=== PATIENT | female | born 1955 | race Caucasian/White ===

== ENCOUNTER → 2017-04-03 | Outpatient (CLI) | payer BC ==
--- NOTE | 2017-04-03 10:44 | REPMRS ---
Patient History The patient states she had a clinical breast exam in 03/2017. Patient is postmenopausal and had first child at age 30. Family history of breast cancer in mother at age 50 or over and ovarian cancer in mother at age 50 or over. Digital Woman Screen Mammo: April 03, 2017 - Exam #: [id number] Bilateral CC and MLO view(s) were taken. Technologist: Barbie Fuller Technologist Prior study comparison: March 27, 2016, digital woman screen mammo performed at [facility]. March 24, 2015, digital woman screen mammo performed at [facility]. March 23, 2014, digital woman screen mammo performed at [facility]. FINDINGS: The breast tissue is almost entirely fat. There has been no change in the appearance of the mammogram from the prior studies. There is no interval development of dominant mass, architectural distortion, or clustered microcalcification typical of malignancy. ASSESSMENT: BI-RADS/ACR category 1 mammogram. Negative. Recommendation Routine screening mammogram of both breasts in 1 year (for women over age 40). This patient's Lifetime Breast Cancer RIsk is estimated at 19 %. This mammogram was interpreted with the aid of an FDA-approved computer-aided dectection system. Electronically Signed By: Rui Garcia MD 04/03/17 [id number]
== END ==
LOC: M WHC 07:54
PROVIDERS: ATTEND Nurse Practitioner Family
DX: Z12.31 Encounter for screening mammogram for malignant neoplasm of breast (principal); Z78.0 Asymptomatic menopausal state

== ENCOUNTER → 2017-04-03 | Outpatient (REF) | payer OTHER | LOC: M SFHCWAGY 08:21 | PROVIDERS: ATTEND Nurse Practitioner Family | DX: Z12.4 Encounter for screening for malignant neoplasm of cervix (principal) ==

== ENCOUNTER 2018-03-05 06:12 | Inpatient (IN) | payer BC, OTHER ==
[2018-03-05 06:49] LABS: BASO % 0.4 % (0.0-1.0); EOS # 0.1 10^3/uL (0.0-0.50); EOS % 0.9 % (0.0-3.0); HEMATOCRIT 44.5 % (36.0-47.0); HEMOGLOBIN 14.2 g/dl (12.0-15.5); IMMATURE GRANULOCYTE % 0.2 % (0-3.0); LYMPH # 1.3 10^3/uL (1.5-4.5); LYMPH % 14.7 % (24.0-44.0); MEAN CORPUSCULAR HEMOGLOBIN 29.5 pg (27.0-33.0); MEAN CORPUSCULAR HGB CONC 31.9 g/dl (32.0-36.5); MEAN CORPUSCULAR VOLUME 92.5 fl (80.0-96.0); MONO # 0.9 10^3/uL (0.0-0.8); MONO % 10.5 % (0.0-5.0); NEUTROPHILS # 6.5 10^3/uL (1.8-7.7); NEUTROPHILS % 73.3 % (36.0-66.0); PLATELET COUNT, AUTOMATED 269 10^3/uL (150-450); RED BLOOD COUNT 4.81 10^6/uL (4.00-5.40); RED CELL DISTRIBUTION WIDTH 14.1 % (11.5-14.5); WHITE BLOOD COUNT 8.9 10^3/uL (4.0-10.0)
[2018-03-05] MEDS: NS 1,000 ML IV ×3 (06:50→20:02)
[2018-03-05] MEDS: MORPHINE 4 MG/ML 1ML VIAL/SYRINGE (J2270) IV ×2 (06:50→09:38)
[2018-03-05 07:24] LABS: ALBUMIN 3.5 GM/DL (3.2-5.2); ALKALINE PHOSPHATASE 81 U/L (45-117); ALT/SGPT 14 U/L (12-78); ANION GAP 8 MEQ/L (8-16); AST/SGOT 19 U/L (7-37); BILIRUBIN,DIRECT < 0.1 MG/DL (0.0-0.2); BILIRUBIN,TOTAL 0.3 MG/DL (0.2-1.0); BLOOD UREA NITROGEN 7 MG/DL (7-18); CALCIUM LEVEL 9.1 MG/DL (8.8-10.2); CARBON DIOXIDE LEVEL 28 MEQ/L (21-32); CHLORIDE LEVEL 105 MEQ/L (98-107); CREATININE FOR GFR 0.95 MG/DL (0.55-1.30); GLOMERULAR FILTRATION RATE > 60.0 (>45); GLUCOSE, FASTING 127 MG/DL (70-100); LIPASE 90 U/L (73-393); POTASSIUM SERUM 4.1 MEQ/L (3.5-5.1); SODIUM LEVEL 141 MEQ/L (136-145); TOTAL PROTEIN 7.4 GM/DL (6.4-8.2)
[2018-03-05] MEDS ORDERED: ISOVUE-370 76% 100ML VIAL (Q9967) As Ordered (07:33)
[2018-03-05 08:09] LABS: APPEARANCE, URINE CLEAR (CLEAR); BACTERIA, URINE AUTO NEGATIVE (NEGATIVE); BILIRUBIN, URINE AUTO NEGATIVE (NEGATIVE); BLOOD, URINE BLOOD 1+ (NEGATIVE); COLOR, URINE STRAW (YELLOW); GLUCOSE, URINE (UA) AUTO NEGATIVE (NEGATIVE); KETONE, URINE AUTO NEGATIVE (NEGATIVE); LEUKOCYTE ESTERASE, URINE AUTO NEGATIVE (NEGATIVE); NITRITE, URINE AUTO NEGATIVE (NEGATIVE); PROTEIN, URINE AUTO NEGATIVE (NEGATIVE); RBC, URINE AUTO 0 /HPF (0-3); SPECIFIC GRAVITY URINE AUTO 1.013 (1.002-1.035); SQUAMOUS EPITHELIAL CELL UR AU 0 /HPF (0-6); UROBILINOGEN, URINE AUTO 0.2 mg/dL (0.0-2.0); WBC, URINE AUTO 0 /HPF (0-3)
[2018-03-05] MEDS: NS 500 ML IV (08:23)
[2018-03-05] MEDS ORDERED: NS 500 ML IV (08:30)
[2018-03-05 09:41] LABS: LACTIC ACID SEPSIS PROTOCOL 2.7 MMOL/L (0.4-2.0)
[2018-03-05] MEDS: PIPERACILLIN/TAZOBACTAM SOD 3.375 GM in D5W MINI-BAG PLUS 50 ML IV (11:10)
[2018-03-05] MEDS ORDERED: MORPHINE 4 MG/ML 1ML VIAL/SYRINGE (J2270) IV (12:45)
[2018-03-05] MEDS ORDERED: ONDANSETRON 4MG/2ML VIAL (J2405) IV (12:45)
[2018-03-05] MEDS: CIPROFLOXACIN 400 MG in APPROPRIATE DILUENT 1 EA IV (13:20)
[2018-03-05] MEDS: metroNIDAZOLE 500 MG in APPROPRIATE DILUENT 1 EA IV ×2 (14:11→23:28)
[2018-03-05] MEDS: PERCOCET 5MG/325MG TAB PO ×2 (15:30→20:03)
[2018-03-06] MEDS: CIPROFLOXACIN 400 MG in APPROPRIATE DILUENT 1 EA IV ×2 (01:54→14:29)
[2018-03-06] MEDS: PERCOCET 5MG/325MG TAB PO ×3 (01:55→21:03)
[2018-03-06] MEDS: metroNIDAZOLE 500 MG in APPROPRIATE DILUENT 1 EA IV ×3 (05:11→21:03)
[2018-03-06 08:26] LABS: HEMATOCRIT 38.4 % (36.0-47.0); HEMOGLOBIN 12.4 g/dl (12.0-15.5); MEAN CORPUSCULAR HEMOGLOBIN 29.2 pg (27.0-33.0); MEAN CORPUSCULAR HGB CONC 32.3 g/dl (32.0-36.5); MEAN CORPUSCULAR VOLUME 90.4 fl (80.0-96.0); PLATELET COUNT, AUTOMATED 236 10^3/uL (150-450); RED BLOOD COUNT 4.25 10^6/uL (4.00-5.40); RED CELL DISTRIBUTION WIDTH 14.5 % (11.5-14.5); WHITE BLOOD COUNT 6.5 10^3/uL (4.0-10.0)
[2018-03-06 08:54] LABS: ANION GAP 5 MEQ/L (8-16); BLOOD UREA NITROGEN 3 MG/DL (7-18); CALCIUM LEVEL 8.5 MG/DL (8.8-10.2); CARBON DIOXIDE LEVEL 26 MEQ/L (21-32); CHLORIDE LEVEL 112 MEQ/L (98-107); CREATININE FOR GFR 0.71 MG/DL (0.55-1.30); GLOMERULAR FILTRATION RATE > 60.0 (>45); GLUCOSE, FASTING 106 MG/DL (70-100); POTASSIUM SERUM 3.5 MEQ/L (3.5-5.1); SODIUM LEVEL 143 MEQ/L (136-145)
[2018-03-06] MEDS: NS 1,000 ML IV (11:58)
[2018-03-06] MEDS: FLUBLOK(EGG FREE)(QUAD)INFLUENZA VACC 0.5ML SYRINGE (90682)18YRS&OLDER IM (11:58)
[2018-03-07] MEDS: CIPROFLOXACIN 400 MG in APPROPRIATE DILUENT 1 EA IV (01:13)
[2018-03-07] MEDS: metroNIDAZOLE 500 MG in APPROPRIATE DILUENT 1 EA IV (06:02)
[2018-03-07 06:15] LABS: HEMATOCRIT 36.8 % (36.0-47.0); HEMOGLOBIN 11.9 g/dl (12.0-15.5); MEAN CORPUSCULAR HEMOGLOBIN 29.6 pg (27.0-33.0); MEAN CORPUSCULAR HGB CONC 32.3 g/dl (32.0-36.5); MEAN CORPUSCULAR VOLUME 91.5 fl (80.0-96.0); PLATELET COUNT, AUTOMATED 221 10^3/uL (150-450); RED BLOOD COUNT 4.02 10^6/uL (4.00-5.40); RED CELL DISTRIBUTION WIDTH 14.5 % (11.5-14.5); WHITE BLOOD COUNT 6.9 10^3/uL (4.0-10.0)
[2018-03-07 06:41] LABS: ANION GAP 8 MEQ/L (8-16); BLOOD UREA NITROGEN 2 MG/DL (7-18); CALCIUM LEVEL 8.2 MG/DL (8.8-10.2); CARBON DIOXIDE LEVEL 26 MEQ/L (21-32); CHLORIDE LEVEL 111 MEQ/L (98-107); CREATININE FOR GFR 0.72 MG/DL (0.55-1.30); GLOMERULAR FILTRATION RATE > 60.0 (>45); GLUCOSE, FASTING 94 MG/DL (70-100); POTASSIUM SERUM 3.4 MEQ/L (3.5-5.1); SODIUM LEVEL 145 MEQ/L (136-145)
== END 2018-03-07 11:30 | disposition home or self-care (01) | DRG 244 ==
LOC: M ED 06:12 → M ED INP 12:38 → M MSPAV 15:08
DX: K57.92 Diverticulitis of intestine, part unspecified, without perforation or abscess without bleeding (principal); I72.8 Aneurysm of other specified arteries; E66.01 Morbid (severe) obesity due to excess calories; Z79.899 Other long term (current) drug therapy

== ENCOUNTER 2018-03-13 06:47 | Emergency (ER) | payer BC, OTHER ==
[2018-03-13] MEDS: NS 1,000 ML IV (07:23)
[2018-03-13 07:39] LABS: BASO % 0.5 % (0.0-1.0); EOS # 0.1 10^3/uL (0.0-0.50); EOS % 1.5 % (0.0-3.0); HEMATOCRIT 41.4 % (36.0-47.0); HEMOGLOBIN 13.5 g/dl (12.0-15.5); IMMATURE GRANULOCYTE % 0.5 % (0-3.0); LYMPH % 14.5 % (24.0-44.0); MEAN CORPUSCULAR HEMOGLOBIN 29.7 pg (27.0-33.0); MEAN CORPUSCULAR HGB CONC 32.6 g/dl (32.0-36.5); MEAN CORPUSCULAR VOLUME 91.2 fl (80.0-96.0); MONO # 0.7 10^3/uL (0.0-0.8); MONO % 10.2 % (0.0-5.0); NEUTROPHILS # 4.8 10^3/uL (1.8-7.7); NEUTROPHILS % 72.8 % (36.0-66.0); PLATELET COUNT, AUTOMATED 224 10^3/uL (150-450); RED BLOOD COUNT 4.54 10^6/uL (4.00-5.40); RED CELL DISTRIBUTION WIDTH 14.4 % (11.5-14.5); WHITE BLOOD COUNT 6.6 10^3/uL (4.0-10.0)
[2018-03-13 08:13] LABS: ALBUMIN 3.1 GM/DL (3.2-5.2); ALBUMIN/GLOBULIN RATIO 0.82 (1.00-1.93); ALKALINE PHOSPHATASE 60 U/L (45-117); ALT/SGPT 23 U/L (12-78); ANION GAP 10 MEQ/L (8-16); AST/SGOT 25 U/L (7-37); BILIRUBIN,DIRECT < 0.1 MG/DL (0.0-0.2); BILIRUBIN,TOTAL 0.4 MG/DL (0.2-1.0); BLOOD UREA NITROGEN 3 MG/DL (7-18); CALCIUM LEVEL 8.7 MG/DL (8.8-10.2); CARBON DIOXIDE LEVEL 26 MEQ/L (21-32); CHLORIDE LEVEL 108 MEQ/L (98-107); GLOMERULAR FILTRATION RATE > 60.0 (>45); GLUCOSE, FASTING 98 MG/DL (70-100); LIPASE 53 U/L (73-393); POTASSIUM SERUM 2.9 MEQ/L (3.5-5.1); SODIUM LEVEL 144 MEQ/L (136-145); TOTAL PROTEIN 6.9 GM/DL (6.4-8.2)
[2018-03-13] MEDS ORDERED: ISOVUE-370 76% 100ML VIAL (Q9967) As Ordered (08:50)
[2018-03-13] MEDS: POTASSIUM CHLORIDE 10 MEQ SR TABLET PO (09:19)
== END 2018-03-13 10:13 | disposition home or self-care (01) ==
LOC: M ED 06:47
DX: R10.9 Unspecified abdominal pain (principal); I45.19 Other right bundle-branch block; K57.30 Diverticulosis of large intestine without perforation or abscess without bleeding; D18.09 Hemangioma of other sites; K44.9 Diaphragmatic hernia without obstruction or gangrene; K80.20 Calculus of gallbladder without cholecystitis without obstruction; Z86.79 Personal history of other diseases of the circulatory system; Z79.899 Other long term (current) drug therapy
CPT/HCPCS: Q9967

== ENCOUNTER → 2018-03-25 | Outpatient (REF) | payer OTHER, BC ==
[2018-03-25 12:32] LABS: ALBUMIN 3.8 GM/DL (3.2-5.2); ALBUMIN/GLOBULIN RATIO 1.03 (1.00-1.93); ALKALINE PHOSPHATASE 64 U/L (45-117); ALT/SGPT 29 U/L (12-78); ANION GAP 10 MEQ/L (8-16); AST/SGOT 22 U/L (7-37); BILIRUBIN,TOTAL 0.6 MG/DL (0.2-1.0); BLOOD UREA NITROGEN 9 MG/DL (7-18); CALCIUM LEVEL 9.4 MG/DL (8.8-10.2); CARBON DIOXIDE LEVEL 27 MEQ/L (21-32); CHLORIDE LEVEL 102 MEQ/L (98-107); CHOLESTEROL LEVEL 250 MG/DL (<200); CHOLESTEROL RISK RATIO 3.906 (<5); CREATININE FOR GFR 0.83 MG/DL (0.55-1.30); FREE T4 1.22 NG/DL (0.76-1.46); GLOMERULAR FILTRATION RATE > 60.0 (>45); GLUCOSE, FASTING 95 MG/DL (70-100); HDL CHOLESTEROL 64 MG/DL (>40); LDL CHOLESTEROL 155 MG/DL (<100); NON-HDL-C 186 MG/DL; POTASSIUM SERUM 4.1 MEQ/L (3.5-5.1); SODIUM LEVEL 139 MEQ/L (136-145); TOTAL PROTEIN 7.5 GM/DL (6.4-8.2); TRIGLYCERIDES LEVEL 157 MG/DL (<150)
== END ==
LOC: M LABDRAW1 07:53
DX: Z00.00 Encounter for general adult medical examination without abnormal findings (principal); E78.2 Mixed hyperlipidemia
CPT/HCPCS: 84443

== ENCOUNTER → 2018-04-04 | Outpatient (CLI) | payer BC | LOC: M WHC 07:44 | DX: Z12.31 Encounter for screening mammogram for malignant neoplasm of breast (principal); R92.1 Mammographic calcification found on diagnostic imaging of breast | CPT/HCPCS: 77067 ==

== ENCOUNTER 2018-08-12 07:43 | Emergency (ER) | payer BC, OTHER ==
[~2018-08-12] VITALS: Ht 162.6 cm; Wt 78.2 kg
[~2018-08-12 07:43] MED LIST: CIPR500T3 PO; CIPR750T2 PO; D 50CAP PO; FLAG500T PO; IBUP200T45 PO; METR-265 PO; PERC5TAB12 PO; PERCOCET PO
[2018-08-12] MEDS ORDERED: PROBCAP14 PO (07:52)
[2018-08-12] MEDS ORDERED: ACET-683 PO (07:52)
[2018-08-12] MEDS ORDERED: NS 1,000 ML IV SCH (08:31)
[2018-08-12] MEDS ORDERED: ONDANSETRON 4MG/2ML VIAL (J2405) IV ONE (08:45)
[2018-08-12] MEDS: MORPHINE 4 MG/ML 1ML VIAL/SYRINGE (J2270) IV PRN ×2 (09:03→10:45)
[2018-08-12] MEDS: GASTROGRAFIN SOLUTION 30ML PO SCH ×2 (09:05→09:35)
[2018-08-12 09:53] LABS: BASO % 0.2 % (0.0-1.0); EOS % 0.2 % (0.0-3.0); HEMATOCRIT 44.4 % (36.0-47.0); HEMOGLOBIN 14.4 g/dl (12.0-15.5); LYMPH # 1.1 10^3/uL (1.5-4.5); LYMPH % 13.5 % (24.0-44.0); MEAN CORPUSCULAR HEMOGLOBIN 30.6 pg (27.0-33.0); MEAN CORPUSCULAR HGB CONC 32.4 g/dl (32.0-36.5); MEAN CORPUSCULAR VOLUME 94.3 fl (80.0-96.0); MONO # 0.7 10^3/uL (0.0-0.8); MONO % 7.9 % (0.0-5.0); NEUTROPHILS # 6.5 10^3/uL (1.8-7.7); NEUTROPHILS % 77.8 % (36.0-66.0); PLATELET COUNT, AUTOMATED 249 10^3/uL (150-450); RED BLOOD COUNT 4.71 10^6/uL (4.00-5.40); WHITE BLOOD COUNT 8.4 10^3/uL (4.0-10.0)
[2018-08-12 10:15] LABS: ALBUMIN 3.7 GM/DL (3.2-5.2); ALT/SGPT 19 U/L (12-78); BILIRUBIN,DIRECT < 0.1 MG/DL (0.0-0.2); BILIRUBIN,TOTAL 0.4 MG/DL (0.2-1.0); BLOOD UREA NITROGEN 6 MG/DL (7-18); CALCIUM LEVEL 9.2 MG/DL (8.8-10.2); CARBON DIOXIDE LEVEL 20 MEQ/L (21-32); CHLORIDE LEVEL 107 MEQ/L (98-107); CREATININE FOR GFR 0.86 MG/DL (0.55-1.30); GLOMERULAR FILTRATION RATE > 60.0 (>45); GLUCOSE, FASTING 79 MG/DL (70-100); LIPASE 95 U/L (73-393); POTASSIUM SERUM 4.3 MEQ/L (3.5-5.1); SODIUM LEVEL 138 MEQ/L (136-145)
[2018-08-12] MEDS ORDERED: ISOVUE-370 76% 100ML VIAL (Q9967) As Ordered ONE (10:19)
--- NOTE | 2018-08-12 11:18 | REP ---
CT of the abdomen and pelvis with IV and bowel contrast: Comparison is 03/13/2018. The visualized lung haynes are unremarkable. There is a fixed hiatal hernia, unchanged. The hepatic hemangioma identified previously is unchanged. The hepatic parenchyma is otherwise unremarkable. Multiple gallbladder calculi are again identified. The gallbladder is otherwise unremarkable. The pancreas and spleen are unremarkable as previously. There is a splenic artery aneurysm today measuring 2.2 cm AP by 1.7 cm transversely by 1.6 cm craniocaudad. This is not significantly changed. The adrenals are unremarkable. The kidneys unremarkable. The abdominal aorta is unremarkable. There is no bowel distension or obstruction. The mesentery is unremarkable. There are multiple sigmoid colon diverticuli as previously. There is no pericolonic inflammation or abscess to suggest diverticulitis. There is no pneumoperitoneum or ascites. Pelvis: The appendix is unremarkable. The uterus and adnexa are unremarkable. There is no adenopathy or ascites. The bladder is unremarkable. Impression: Sigmoid colon diverticulosis without diverticulitis. Cholelithiasis, unchanged. Hiatal hernia, unchanged. Renal artery aneurysm, unchanged. Hepatic hemangioma, unchanged. Electronically Signed by James Singh MD 08/12/2018 11:10 A
[2018-08-12] MEDS ORDERED: TRAM50TA2 PO (11:29)
[2018-08-12 11:50] VITALS: BP 120/58
--- NOTE | 2018-08-13 14:52 | ED PDOC ---
Post-Departure Follow-Up dr carcamo faxed formal report of ct abd/p for fu Krystina Hodges MD Aug 13, 2018 14:52
--- NOTE | 2018-08-13 14:58 | ED PDOC ---
Post-Departure Follow-Up dr carcamo also faxed formal report of ct abd/p w iv and po contrast for fu Krystina Hodges MD Aug 13, 2018 14:58
== END 2018-08-12 11:53 | disposition home or self-care (01) ==
LOC: M ED 07:43
DX: K57.90 Diverticulosis of intestine, part unspecified, without perforation or abscess without bleeding (principal)
CPT/HCPCS: 36415; 74177; 80048; 80076; 83605; 83690; 85025; 93041; 96374; 96376; 99285; J2270; Q9963; Q9967

== ENCOUNTER 2018-08-15 17:05 | Emergency (ER) | payer BC, OTHER ==
[~2018-08-15] VITALS: Ht 162.6 cm; Wt 77.3 kg
[~2018-08-15 17:05] MED LIST changes: +ACET-683 PO; +PROBCAP14 PO; +TRAM50TA2 PO
[2018-08-15] MEDS ORDERED: KETOROLAC 30 MG/ML VIAL (J1885) IV ONE (19:00)
[2018-08-15] MEDS ORDERED: ONDANSETRON 4 MG ORAL DISINTEGRATING TAB (Q0162 PER 1MG) PO ONE (19:00)
[2018-08-15] MEDS ORDERED: NS 1,000 ML IV ONE (19:00)
--- NOTE | 2018-08-15 20:24 | ECGEPIP ---
Stationary ECG Study [facility] - ED Test Date: 2018-08-15 Pat Name: SANDRA ALFORD Department: Room: - Gender: F Pump Stitcher: haja : 1955 Requested By: Benson Ayala Order Number: [id number] Reading MD: Raza Diallo Measurements Intervals [place] Rate: 68 P: 17 UT: 182 QRS: 24 QRSD: 78 T: 2 QT: 339 QTc: 363 Interpretive Statements SINUS RHYTHM NONSPECIFIC ST & T-WAVE ABNORMALITY Similar to tracing done 03-13-18 Electronically Signed On 08-15-2018 20:23:45 EDT by Raza Diallo
[2018-08-15 20:42] LABS: BASO % 0.5 % (0.0-1.0); EOS # 0.1 10^3/uL (0.0-0.50); EOS % 0.6 % (0.0-3.0); HEMATOCRIT 39.7 % (36.0-47.0); HEMOGLOBIN 13.6 g/dl (12.0-15.5); LYMPH # 1.5 10^3/uL (1.5-4.5); LYMPH % 19.4 % (24.0-44.0); MEAN CORPUSCULAR HEMOGLOBIN 30.5 pg (27.0-33.0); MEAN CORPUSCULAR HGB CONC 34.3 g/dl (32.0-36.5); MONO # 0.8 10^3/uL (0.0-0.8); MONO % 10.1 % (0.0-5.0); NEUTROPHILS # 5.4 10^3/uL (1.8-7.7); NEUTROPHILS % 69.1 % (36.0-66.0); PLATELET COUNT, AUTOMATED 272 10^3/uL (150-450); RED BLOOD COUNT 4.46 10^6/uL (4.00-5.40); WHITE BLOOD COUNT 7.8 10^3/uL (4.0-10.0)
[2018-08-15] MEDS ORDERED: MORPHINE 2 MG/ML 1ML SYRINGE (J2270) IV ONE (21:45)
[2018-08-15] MEDS ORDERED: AUGM875T28 PO (21:46)
[2018-08-15 22:05] LABS: ALT/SGPT 19 U/L (12-78); BILIRUBIN,TOTAL 0.2 MG/DL (0.2-1.0); BLOOD UREA NITROGEN 3 MG/DL (7-18); CALCIUM LEVEL 8.4 MG/DL (8.8-10.2); CARBON DIOXIDE LEVEL 25 MEQ/L (21-32); CHLORIDE LEVEL 110 MEQ/L (98-107); GLOMERULAR FILTRATION RATE > 60.0 (>45); GLUCOSE, FASTING 92 MG/DL (70-100); POTASSIUM SERUM 3.5 MEQ/L (3.5-5.1); SODIUM LEVEL 144 MEQ/L (136-145); TOTAL PROTEIN 5.9 GM/DL (6.4-8.2)
[2018-08-15] MEDS ORDERED: AUGMENTIN 875 MG TAB PO ONE (22:30)
[2018-08-15 22:51] VITALS: BP 126/60
== END 2018-08-15 23:19 | disposition home or self-care (01) ==
LOC: M ED 17:05
DX: R25.8 Other abnormal involuntary movements (principal); T36.8X5A Adverse effect of other systemic antibiotics, initial encounter; T37.3X5A Adverse effect of other antiprotozoal drugs, initial encounter; K57.92 Diverticulitis of intestine, part unspecified, without perforation or abscess without bleeding; R10.32 Left lower quadrant pain; Z79.899 Other long term (current) drug therapy; Z79.2 Long term (current) use of antibiotics
CPT/HCPCS: 80053; 85025; 93005; 96374; 96375; 99284; J1885; J2270; Q0162

== ENCOUNTER → 2018-11-11 | Outpatient (REF) | payer OTHER, BC ==
[~2018-11-11] MED LIST changes: +AUGM875T28 PO
[2018-11-11 13:01] LABS: ALBUMIN 3.4 GM/DL (3.2-5.2); ALT/SGPT 14 U/L (12-78); BILIRUBIN,TOTAL 0.4 MG/DL (0.2-1.0); BLOOD UREA NITROGEN 11 MG/DL (7-18); CALCIUM LEVEL 9.2 MG/DL (8.8-10.2); CARBON DIOXIDE LEVEL 28 MEQ/L (21-32); CHLORIDE LEVEL 107 MEQ/L (98-107); CHOLESTEROL LEVEL 250 MG/DL (<200); CHOLESTEROL RISK RATIO 3.472 (<5); GLOMERULAR FILTRATION RATE > 60.0 (>45); GLUCOSE, FASTING 86 MG/DL (70-100); HDL CHOLESTEROL 72 MG/DL (>40); LDL CHOLESTEROL 157 MG/DL (<100); NON-HDL-C 178 MG/DL; POTASSIUM SERUM 4.3 MEQ/L (3.5-5.1); SODIUM LEVEL 142 MEQ/L (136-145); TOTAL PROTEIN 7.1 GM/DL (6.4-8.2); TRIGLYCERIDES LEVEL 105 MG/DL (<150)
[2018-11-11 13:03] LABS: TOTAL 25(OH) VITAMIN D 38.8 NG/ML (30.0-100.0)
== END ==
LOC: M LABDRAW1 08:41
PROVIDERS: ATTEND Physician Assistant
DX: E78.2 Mixed hyperlipidemia (principal); E55.9 Vitamin D deficiency, unspecified

== ENCOUNTER → 2019-03-12 | Outpatient (CLI) | payer BC, OTHER ==
--- NOTE | 2019-03-13 11:00 | REP ---
Clinical: History of splenic artery aneurysm for follow up. Technique: Real time patrick scale and color evaluation using curved array transducer. Findings: Limited directed ultrasound examination of the left upper quadrant was performed. Examination is limited due to overlying bowel gas. The splenic artery demonstrates atherosclerotic changes and is limited in evaluation by ultrasound. There is an area approaching the hilum which appears dilated to 2.4 x 2.0 x 2.6 cm. Impression: Significant atherosclerotic changes to the splenic artery with aneurysm suggested approaching the hilum measuring 2.6 cm maximal diameter. Electronically Signed by Todd Hodges MD 03/13/2019 10:51 A
== END ==
LOC: M RAD 08:40
PROVIDERS: ATTEND Physician Assistant
DX: I72.8 Aneurysm of other specified arteries (principal)

== ENCOUNTER → 2019-03-26 | Outpatient (CLI) | payer BC, OTHER ==
[~2019-03-26] MED LIST changes: +ISOVUE-370 76% 100ML VIAL (Q9967) As Ordered ONE
--- NOTE | 2019-03-26 10:58 | REP ---
CT angiography of the abdomen and pelvis with IV contrast: History: "Aneurysm of other specified arteries". Sonography March 12, 2019 showed evidence of a 2.6 cm splenic artery aneurysm. Comparison is made with CT studies, the most recent which is from August 12, 2018. Comparison is also made with CT exam from March 05, 2018. CT contrast dose: 100 mL of intravenous Isovue 370. CT findings: Preliminary digital sports specialist radiograph demonstrates a peripherally calcified lesion in the left upper quadrant. Bowel gas pattern is normal. CT angiographic images confirm the presence of a peripherally calcified splenic artery aneurysm. Its greatest diameter is 2.3 cm x 1.5 cm x 1.6 cm. Its lumen is patent. No other visceral artery aneurysm is seen. The splenic artery aneurysm is slightly larger in anteroposterior span on today's images. It measured 16 mm in AP dimension March 05, 2018. The suprarenal and infrarenal abdominal aorta are normal in caliber. Singular non-stenotic renal arteries are observed. There is a retroaortic left renal vein noted incidentally. The celiac and superior mesenteric artery origins are widely patent. Inferior mesenteric artery is patent and unremarkable. No other angiographic abnormality is seen. Common iliac, external iliac, and internal iliac arteries are patent bilaterally. Incidental findings include cholelithiasis and a 3.2 cm right lobe hepatic hemangioma which is unchanged from the February 2018 study. There is a hiatal hernia as well. Impression: Splenic artery aneurysm measuring 2.3 x 1.5 x 1.6 cm again seen. This may be slightly larger than on the original CT study. Electronically Signed by Johan Garcia MD 03/26/2019 03:24 P
== END ==
LOC: M RAD 07:44
PROVIDERS: ATTEND Physician Assistant
DX: I72.8 Aneurysm of other specified arteries (principal)
CPT/HCPCS: 74174; Q9967

== ENCOUNTER → 2019-04-08 | Outpatient (REF) | payer OTHER ==
[~2019-04-08] MED LIST changes: -ISOVUE-370 76% 100ML VIAL (Q9967) As Ordered ONE
== END ==
LOC: M PLALAB 08:51
PROVIDERS: ATTEND Nurse Practitioner Family
DX: Z12.4 Encounter for screening for malignant neoplasm of cervix (principal); N95.2 Postmenopausal atrophic vaginitis
CPT/HCPCS: 87624; G0123

== ENCOUNTER → 2019-05-08 | Outpatient (CLI) | payer BC, OTHER ==
--- NOTE | 2019-05-08 09:02 | REPMRS ---
Patient History The patient states she had a clinical breast exam in 04/2019. Patient is postmenopausal and had first child at age 30. Family history of breast cancer at age 50 or over and ovarian cancer at age 50 or over in mother. No Hormone Replacement Therapy Digital Woman Screen Mammo: May 08, 2019 - Exam #: [id number] Bilateral CC and MLO view(s) were taken. Technologist: Michelle Valladares, Technologist Prior study comparison: April 04, 2018, bilateral digital woman screen mammo performed at [facility]. April 03, 2017, digital woman screen mammo performed at [facility]. March 27, 2016, digital woman screen mammo performed at [facility]. FINDINGS: The breast tissue is almost entirely fat. There has been no change in the appearance of the mammogram from the prior studies. There is no interval development of dominant mass, architectural distortion, or grouped microcalcification typical of malignancy. 3-D tomosynthesis shows no additional findings. Assessment: BI-RADS/ACR category 1 mammogram. Negative Mammogram. Recommendation Routine screening mammogram of both breasts in 1 year (for women over age 40). This patient's Lifetime Breast Cancer RIsk is estimated at 17.5 %. This mammogram was interpreted with the aid of an FDA-approved computer-aided dectection system. Electronically Signed By: Rui Garcia MD 05/08/19 0901
== END ==
LOC: M WHC 07:50
PROVIDERS: ATTEND Nurse Practitioner Family
DX: Z12.31 Encounter for screening mammogram for malignant neoplasm of breast (principal)

== ENCOUNTER → 2020-04-22 | Outpatient (CLI) | payer MEDICARE, BC, OTHER ==
[2020-04-22 09:59] LABS: CREATININE FOR GFR 0.99 MG/DL (0.55-1.30); GLOMERULAR FILTRATION RATE 59.9 (>45)
== END ==
LOC: M LAB 09:05
PROVIDERS: ATTEND Surgery Vascular Surgery
DX: I72.8 Aneurysm of other specified arteries (principal)

== ENCOUNTER → 2020-04-26 | Outpatient (CLI) | payer MEDICARE, BC, OTHER ==
[~2020-04-26] MED LIST changes: +ISOVUE-370 76% 100ML VIAL As Ordered ONE
--- NOTE | 2020-04-26 10:48 | REP ---
INDICATION: ANEURYSM OF OTHER SPECIFIED ARTERIES COMPARISON: 03/26/2019, 08/12/2018 TECHNIQUE: Axial contrast-enhanced images from the lung bases to the pubic symphysis using arterial angiographic technique including coronal and sagittal reformations as well as post processing to include volume rendered CT angiogram of the aorta and branch vessels as well as coronal and sagittal MIP images. 100 cc Isovue 370 intravenous contrast material administered without complication. This CT examination was performed using the following dose reduction techniques: Automated exposure control, adjustment of mA and/or kv according to the patient's size, and use of iterative reconstruction technique. FINDINGS: The previously identified splenic artery aneurysm is unchanged and again measures approximately 2.3 x 1.5 x 1.5 cm. The abdominal aorta as well as the celiac axis, superior mesenteric artery, bilateral solitary renal arteries, inferior mesenteric artery and bilateral iliac arteries are normal. Incidental retroaortic left renal vein noted. Liver, spleen, pancreas, bilateral adrenal glands and kidneys are normal. Cholelithiasis again noted without acute cholecystitis. Moderate hiatal hernia at the gastroesophageal junction noted. Small and large bowel is without obstruction or acute inflammatory process. Normal terminal ileum and appendix identified in the right lower quadrant. Few scattered sigmoid diverticula noted without acute diverticulitis. Pelvis demonstrates normal bladder and age-appropriate uterus/adnexa. No pelvic fluid or ascites. No free air. No intraperitoneal or retroperitoneal adenopathy. Surrounding musculoskeletal structures are intact. Lung bases are clear. IMPRESSION: 1. Stable splenic artery aneurysm measuring 2.3 x 1.5 x 1.5 cm. Aorta and branch vessels as described above are normal. 2. Cholelithiasis. 3. Few scattered sigmoid diverticula. <Electronically signed by Todd Hodges > 04/26/20 1048
== END ==
LOC: M RAD 08:38
PROVIDERS: ATTEND Surgery Vascular Surgery
DX: I72.8 Aneurysm of other specified arteries (principal); K76.0 Fatty (change of) liver, not elsewhere classified
CPT/HCPCS: 74174; Q9967

== ENCOUNTER → 2020-05-10 | Outpatient (CLI) | payer MEDICARE, BC, OTHER ==
[~2020-05-10] MED LIST changes: -ISOVUE-370 76% 100ML VIAL As Ordered ONE
--- NOTE | 2020-05-10 09:22 | REPMRS ---
Patient History The patient states she had a clinical breast exam in May 2020.Patient is postmenopausal and had first child at age 30. Family history of breast cancer at age 50 or over and ovarian cancer at age 50 or over in mother. No Hormone Replacement Therapy Digital Woman Screen Mammo: May 10, 2020 - Exam #: [id number] Bilateral CC and MLO view(s) were taken. Technologist: Shari Garner, Technologist Prior study comparison: May 08, 2019, bilateral digital woman screen mammo performed at [facility]. April 04, 2018, bilateral digital woman screen mammo performed at [facility]. April 03, 2017, digital woman screen mammo performed at [facility]. FINDINGS: The breast tissue is almost entirely fat. The Volpara volumetric breast density category is: A. There has been no change in the appearance of the mammogram from the prior studies. There is no interval development of dominant mass, architectural distortion, or grouped microcalcification typical of malignancy. 3-D tomosynthesis shows no additional findings. Assessment: BI-RADS/ACR category 1 mammogram. Negative Mammogram. Recommendation Routine screening mammogram of both breasts in 1 year (for women over age 40). This patient's [facility] Lifetime Breast Cancer RIsk is estimated at 16.6 %. This mammogram was interpreted with the aid of an FDA-approved computer-aided dectection system. Electronically Signed By: Rui Garcia MD 05/10/20 0922
== END ==
LOC: M WHC 07:44
PROVIDERS: ATTEND Nurse Practitioner Family
DX: Z12.31 Encounter for screening mammogram for malignant neoplasm of breast (principal); Z78.0 Asymptomatic menopausal state; Z80.3 Family history of malignant neoplasm of breast; Z80.41 Family history of malignant neoplasm of ovary
CPT/HCPCS: 77063; 77067; G0463

== ENCOUNTER → 2021-05-11 | Outpatient (CLI) | payer MEDICARE, BC, OTHER ==
[~2021-05-11] MED LIST changes: -IBUP200T45 PO; +IBUP200T46 PO
== END ==
LOC: M WHC 07:35
PROVIDERS: ATTEND Nurse Practitioner Women's Health
DX: Z01.419 Encounter for gynecological examination (general) (routine) without abnormal findings (principal); Z12.31 Encounter for screening mammogram for malignant neoplasm of breast; Z78.0 Asymptomatic menopausal state
CPT/HCPCS: 77063; 77067; G0101

== ENCOUNTER 2022-07-12 03:30 | Emergency (ER) | payer MEDICARE, BC, OTHER ==
[~2022-07-12] VITALS: Ht 162.6 cm; Wt 84.1 kg
[2022-07-12 04:46] LABS: BASO % 0.4 % (0.0-1.0); EOS # 0.1 10^3/uL (0.0-0.5); EOS % 0.9 % (0.0-3.0); HEMATOCRIT 43.2 % (36.0-47.0); HEMOGLOBIN 14.2 g/dl (12.0-15.5); LYMPH # 1.6 10^3/uL (1.5-5.0); LYMPH % 21.6 % (24.0-44.0); MEAN CORPUSCULAR HEMOGLOBIN 30.2 pg (27.0-33.0); MEAN CORPUSCULAR HGB CONC 32.9 g/dl (32.0-36.5); MEAN CORPUSCULAR VOLUME 91.9 fl (80.0-96.0); MONO # 0.6 10^3/uL (0.0-0.8); MONO % 8.6 % (2.0-8.0); NEUTROPHILS # 5.1 10^3/uL (1.5-8.5); NEUTROPHILS % 68.2 % (36.0-66.0); PLATELET COUNT, AUTOMATED 283 10^3/uL (150-450); WHITE BLOOD COUNT 7.5 10^3/uL (4.0-10.0)
[2022-07-12] MEDS ORDERED: NS 1,000 ML IV ONE ×2 (04:55→06:45)
[2022-07-12 04:57] LABS: INR 0.93; PROTHROMBIN TIME 12.7 SECONDS (12.5-14.5)
[2022-07-12 04:59] LABS: D-DIMER QUANT 409.33 ng/ml (<500)
[2022-07-12 05:07] LABS: LIPASE 28 U/L (12-53)
[2022-07-12 05:09] LABS: CPK CREATINE PHOSPHOKINASE 45 U/L (34-145)
[2022-07-12 05:12] LABS: ALBUMIN 3.5 G/DL (3.2-5.2); ALKALINE PHOSPHATASE 71 U/L (46-116); ALT/SGPT 10 U/L (7.0-40); AST/SGOT 17 U/L (<34); BILIRUBIN,DIRECT 0.2 MG/DL (<0.4); BILIRUBIN,TOTAL 0.6 MG/DL (0.3-1.2); BLOOD UREA NITROGEN 13 MG/DL (9-23); CALCIUM LEVEL 9.4 MG/DL (8.3-10.6); CARBON DIOXIDE LEVEL 24 MMOL/L (20-31); CHLORIDE LEVEL 104 MMOL/L (98-107); CK-MB VALUE MASS < 1.0 NG/ML (<3.6); CREATININE FOR GFR 0.84 MG/DL (0.55-1.30); FREE T4 1.53 NG/DL (0.89-1.76); GLOMERULAR FILTRATION RATE > 60.0 (>45); GLUCOSE, FASTING 113 MG/DL (74-106); MB/CK RELATIVE INDEX 2.22 (< OR =4); POTASSIUM SERUM 3.8 MMOL/L (3.5-5.1); SODIUM LEVEL 139 MMOL/L (136-145); THYROID STIMULATING HORMONE 2.372 uIU/ML (0.55-4.78); TOTAL PROTEIN 7.1 G/DL (5.7-8.2)
[2022-07-12 06:21] LABS: CK-MB VALUE MASS < 1.0 NG/ML (<3.6)
[2022-07-12 06:27] LABS: CPK CREATINE PHOSPHOKINASE 40 U/L (34-145)
[2022-07-12 07:16] VITALS: BP 150/66
== END 2022-07-12 09:06 | disposition home or self-care (01) ==
LOC: M ED 03:30
DX: R53.83 Other fatigue (principal); R00.2 Palpitations; Z79.899 Other long term (current) drug therapy

== ENCOUNTER → 2022-09-12 | Outpatient (REF) | payer MEDICARE, BC, OTHER | LOC: M SFHCWAGY 13:24 | PROVIDERS: ATTEND Nurse Practitioner Family | DX: Z12.4 Encounter for screening for malignant neoplasm of cervix (principal); N95.2 Postmenopausal atrophic vaginitis | CPT/HCPCS: 87624; G0123 ==

== ENCOUNTER → 2022-09-12 | Outpatient (CLI) | payer MEDICARE, OTHER | LOC: M WHC 09:17 | PROVIDERS: ATTEND Nurse Practitioner Family | DX: Z12.31 Encounter for screening mammogram for malignant neoplasm of breast (principal); Z13.820 Encounter for screening for osteoporosis; M81.0 Age-related osteoporosis without current pathological fracture; M85.851 Other specified disorders of bone density and structure, right thigh; Z80.41 Family history of malignant neoplasm of ovary; Z80.3 Family history of malignant neoplasm of breast ==

== ENCOUNTER → 2023-09-20 | Outpatient (CLI) | payer MEDICARE, BC | LOC: M WHC 07:53 | PROVIDERS: ATTEND Nurse Practitioner Family | DX: Z12.31 Encounter for screening mammogram for malignant neoplasm of breast (principal) ==

== ENCOUNTER → 2024-09-23 | Outpatient (CLI) | payer MEDICARE, BC | LOC: M WHC 07:56 | PROVIDERS: ATTEND Nurse Practitioner Family | DX: Z12.31 Encounter for screening mammogram for malignant neoplasm of breast (principal); Z13.820 Encounter for screening for osteoporosis; M81.0 Age-related osteoporosis without current pathological fracture; M85.88 Other specified disorders of bone density and structure, other site; M85.851 Other specified disorders of bone density and structure, right thigh; M85.852 Other specified disorders of bone density and structure, left thigh; R92.313 Mammographic fatty tissue density, bilateral breasts ==

== ENCOUNTER 2025-01-14 06:25 | Day surgery (SDC) | payer MEDICARE, BC ==
[~2025-01-14] VITALS: Ht 162.6 cm; Wt 83.8 kg
[~2025-01-14 06:25] MED LIST changes: +CALC500T68 PO; +VITA100093 PO
[2025-01-14] MEDS ORDERED: LIDOCAINE 2% INJ 100 MG/5 ML SYRINGE As Ordered ONE (07:08)
[2025-01-14 07:46] VITALS: TEMP 97.5
[2025-01-14 08:05] VITALS: BP 120/57; O2SAT 94
== END 2025-01-14 08:10 | disposition home or self-care (01) ==
LOC: M OPP 06:25
PROVIDERS: ATTEND Internal Medicine Gastroenterology
DX: Z12.11 Encounter for screening for malignant neoplasm of colon (principal); K64.0 First degree hemorrhoids; K57.30 Diverticulosis of large intestine without perforation or abscess without bleeding; Z88.1 Allergy status to other antibiotic agents; Z88.8 Allergy status to other drugs, medicaments and biological substances; Z79.899 Other long term (current) drug therapy